=== PATIENT | male | born 1995 | race American Indian/Alaskan Native ===

== ENCOUNTER 2020-02-05 22:19 | Emergency (ER) | payer SELFPAY ==
[2020-02-05 22:33] VITALS: BP 116/70
--- NOTE | 2020-02-05 23:33 | Ultrasound Report ---
Scrotal Ultrasound HISTORY: Right testicular pain and swelling. TECHNIQUE: Grayscale and color imaging performed. COMPARISON: None FINDINGS: The right testicle measures 3.7 x 2.1 x 3.6 cm with normal appearance and preserved blood f low. The right epididymal head is normal in size and appearance. No hydrocele or varicocele. The left testicle measures 3.7 x 2.0 x 3.6 cm also with normal appearance and preserved blood flow. T he left epididymal head contains a couple simple cysts measuring up to 5 mm in maximal dimension. No hydrocele or varicocele. IMPRESSION: Small epididymal head cysts on the left. Otherwise unremarkable exam. Signer Name: Tony Monson MD Signed: 02/05/2020 11:28 PM Workstation Name: [id number]
== END 2020-02-06 04:40 | disposition left against medical advice (07) ==
LOC: ED 22:19
DX: N50.819 Testicular pain, unspecified (principal); Z53.21 Procedure and treatment not carried out due to patient leaving prior to being seen by health care provider
CPT/HCPCS: 93975